=== PATIENT | male | born 1950 | race Caucasian/White ===

== ENCOUNTER → 2017-01-25 | Day surgery (SDC) | payer BC, MEDICARE ==
[~2017-01-25] MED LIST: ALDACTONE25 MG PO; ASPIRIN81 MG PO; CORDARONE200 M1 PO; FUROSEMIDE40 MG PO; KLOR-CON PO; METOPROLOL SUCC50 MG PO; METOPROLOL TART25 MG PO; OMEPRAZOLE20 M2 PO; PRAVASTATIN SOD80 MG PO; XARELTO20 MG PO
--- NOTE | ~2017-01-25 | OR ---
Unit #: [id number] #: [id number] Patient: DONNY ZAMBRANO [id number] [address] [place], [place] [address] [id number] O MR#: [id number] NAME: DONNY ZAMBRANO ROOM: Date of Procedure: 01/25/2017 Admission Date: 01/25/2017 Surgeon: Mihir Lawson M.D. : 1950 Attending Physician: Mihir Lawson M.D. Primary Care Physician: Ming Menard M.D. OPERATIVE REPORT PREOPERATIVE DIAGNOSIS Colorectal cancer screening in an average-risk patient. PROCEDURES PERFORMED 1. Colonoscopy and polypectomy. 2. Colonoscopy and argon plasma coagulation ablation. POSTOPERATIVE DIAGNOSES 1. The patient has a single sessile polyp in mid descending colon. This was about 6 to 7 mm in size. It was removed using snare polypectomy. 2. 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 These were ablated using argon plasma coagulation therapy. 3. Rest of the examination up to cecum and terminal ileum was normal. The quality of the prep was excellent. RECOMMENDATIONS 1. Follow up the results of polyp histology. 2. Consider repeat colonoscopy in 5 years. SEDATION USED MAC. DESCRIPTION OF PROCEDURE Following detailed explanation of the potential risks and complications of a colonoscopy namely perforation, bleeding, and complications related to sedation, the patient was brought to GI lab and laid in the left lateral decubitus position. A digital rectal examination was performed, which was normal. Lubricated tip of the Olympus video colonoscope was inserted through the anus and advanced under direct vision. The scope was advanced past rectosigmoid into descending colon. No diverticula noted in this area. The scope tip was then navigated all the way up to cecum with visualization of the ileocecal valve and the appendiceal orifice. Preparation was excellent with good visualization and photodocumentation was obtained. Last several inches of the terminal ileum were also visualized after intubation of the ileocecal valve and appeared normal. Successive segments of the colonic mucosa were examined upon withdrawal. A single sessile polyp was noted in the mid descending colon. This was about 6 to 7 mm in size. It was removed using snare polypectomy. The polyp was retrieved and sent for histology. No additional polyps were noted. 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 Unit #: [id number] #: [id number] Patient: DONNY ZAMBRANO These were present in the rectal mucosa. They were ablated using argon plasma coagulation therapy at appropriate settings. Excellent hemostasis was achieved and photodocumentation was obtained. The scope was then withdrawn and the patient returned to the recovery area. He tolerated the procedure without any postprocedure complications. Dictated by... Dash Goyal/edith TD: 01/25/2017 16:01 JOB #: [id number] CC: Ming Menard M.D. OPERATIVE REPORT Page 1 of 1 X Mihir Lawson MD X PROCEDURE OPERATIVE NOTE
== END | disposition home or self-care (01) ==
LOC: COPS 12-03 11:00
DX: Z12.11 Encounter for screening for malignant neoplasm of colon (principal); K63.5 Polyp of colon; K55.20 Angiodysplasia of colon without hemorrhage; I10 Essential (primary) hypertension; Z85.46 Personal history of malignant neoplasm of prostate; Z79.899 Other long term (current) drug therapy; Z95.810 Presence of automatic (implantable) cardiac defibrillator
CPT/HCPCS: 88305